=== PATIENT | male | born 1950 | race Caucasian/White ===

== ENCOUNTER 2017-07-08 11:22 | Outpatient (POV) | payer MEDICARE, SELFPAY | END 2017-07-08 15:33 | disposition home or self-care (01) | PROVIDERS: Family Provider Family Medicine; PCP Family Medicine; Visit Provider Urology | DX: N40.1 Benign prostatic hyperplasia with lower urinary tract symptoms (principal); R33.8 Other retention of urine | CPT/HCPCS: 99212 ==

== ENCOUNTER → 2018-02-03 15:16 | Outpatient (CLI) | payer MEDICARE, SELFPAY ==
[2018-02-03 16:31] LABS: Prostate Specific Ag Screen 6.9 ng/mL (0.0-4.0)
== END ==
PROVIDERS: Visit Provider Urology
DX: Z12.5 Encounter for screening for malignant neoplasm of prostate (principal); N40.0 Benign prostatic hyperplasia without lower urinary tract symptoms
CPT/HCPCS: 36415; G0103

== ENCOUNTER → 2018-06-30 12:59 | Outpatient (CLI) | payer MEDICARE, SELFPAY ==
[2018-07-01 14:18] LABS: PSA, Free 1.48 ng/mL; Prostate Specific Ag 8.3 ng/mL (0.0-4.0)
== END ==
PROVIDERS: Visit Provider Urology
DX: R97.20 Elevated prostate specific antigen [PSA] (principal)
CPT/HCPCS: 36415; 84153; 84154

== ENCOUNTER → 2018-12-29 13:17 | Outpatient (CLI) | payer MEDICARE, SELFPAY ==
[2018-12-31 07:46] LABS: PSA, Free 1.43 ng/mL; Prostate Specific Ag 7.5 ng/mL (0.0-4.0)
== END ==
PROVIDERS: Visit Provider Urology
DX: R97.20 Elevated prostate specific antigen [PSA] (principal)
CPT/HCPCS: 36415; 84153; 84154

== ENCOUNTER → 2019-03-17 12:25 | Outpatient (CLI) | payer MEDICARE, SELFPAY ==
[2019-03-19 11:42] LABS: Prostate Specific Ag 7.3 ng/mL (0.0-4.0)
== END ==
PROVIDERS: Visit Provider Urology
DX: R97.20 Elevated prostate specific antigen [PSA] (principal)
CPT/HCPCS: 36415; 84153; 84154

== ENCOUNTER → 2019-06-14 11:39 | Outpatient (CLI) | payer MEDICARE, SELFPAY ==
[2019-06-15 10:32] LABS: PSA, Free 1.63 ng/mL; Prostate Specific Ag 7.8 ng/mL (0.0-4.0)
== END ==
PROVIDERS: Visit Provider Urology
DX: R97.20 Elevated prostate specific antigen [PSA] (principal)
CPT/HCPCS: 84153; 84154

== ENCOUNTER → 2020-01-14 10:50 | Outpatient (CLI) | payer MEDICARE, SELFPAY ==
[2020-01-15 06:13] LABS: PSA, Free 1.29 ng/mL; Prostate Specific Ag 7.5 ng/mL (0.0-4.0)
== END ==
PROVIDERS: Visit Provider Urology
DX: R97.20 Elevated prostate specific antigen [PSA] (principal)
CPT/HCPCS: 84153; 84154

== ENCOUNTER → 2020-07-27 11:12 | Outpatient (CLI) | payer MEDICARE, SELFPAY ==
[2020-07-28 10:05] LABS: PSA, Free 1.69 ng/mL; Prostate Specific Ag 8.9 ng/mL (0.0-4.0)
== END ==
PROVIDERS: Visit Provider Urology
DX: R97.20 Elevated prostate specific antigen [PSA] (principal)
CPT/HCPCS: 36415; 84153; 84154

== ENCOUNTER → 2021-01-26 10:44 | Outpatient (CLI) | payer MEDICARE, SELFPAY ==
[2021-01-27 11:25] LABS: PSA, Free 1.36 ng/mL
== END ==
PROVIDERS: Visit Provider Urology
DX: R97.20 Elevated prostate specific antigen [PSA] (principal)
CPT/HCPCS: 36415; 84153; 84154